=== PATIENT | female | born 1950 | race Caucasian/White ===

== ENCOUNTER 2019-09-25 19:09 | Emergency (ER) | payer OTHER, MEDICARE ==
[2019-09-25 19:28] VITALS: BP 139/97; PULSE 84; TEMP 98.1; BMI 25.7
[2019-09-25] MEDS ORDERED: DIPHTH,PERTUSS(ACELL),TET 0.5 ML DISP.SYRIN IM ONE ×2 (20:25→20:29)
--- NOTE | 2019-09-26 01:08 | PDOC ---
Documentation entered by Lyndsey Viveros SCRIBE, acting as scribe for Nena Woods MD. Nena Woods MD: This documentation has been prepared by the emiribeFelice Ana, SCRIBE, under my direction and personally reviewed by me in its entirety. I confirm that the documentation accurately reflects all work, treatment, procedures, and medical decision making performed by me. History of Present Illness - General Chief Complaint: Laceration Stated Complaint: LEFT 4TH FINGER LACERATION Time Seen by Provider: 09/25/19 19:17 History Source: Patient Exam Limitations: No Limitations - History of Present Illness Initial Comments: 09/25/19 19:22 Patient is a 68 year old female with a significant past medical history of hypothyroidism and depression, who presents to the ED with an injury to her left hand earlier today. Patient stated she was gardening when she "snipped a piece of her finger with garden snippers" and the blood started "gushing". Patient placed a gauze dressing on the wound but reported here when bleeding persisted Patient denies: smoking, alcohol use, fever, chills, headache, nausea, vomiting, SOB, chest pain, abdominal pain, diarrhea, back pain, or any other related symptoms Unknown last tetanus immunization Allergies: Iv Contrast Past History - Medical History Allergies/Adverse Reactions: Allergies Allergy/AdvReac Type Severity Reaction Status Date / Time IV Contrast Allergy Uncoded 09/25/19 19:11 Home Medications: Ambulatory Orders Aspirin [Aspirin EC] 81 mg PO DAILY 09/25/19 Bupropion HCl [Wellbutrin Xl] 300 mg PO DAILY 09/25/19 Cholecalciferol (Vitamin D3) [Vitamin D3] 2,000 unit PO DAILY 09/25/19 Docusate Sodium [Colace] 100 mg PO DAILY 09/25/19 Duloxetine HCl 100 mg PO DAILY 09/25/19 Irbesartan 150 mg PO DAILY 09/25/19 L.acidoph,Paracasei, B.lactis [Probiotic] 1 each PO DAILY 09/25/19 Levothyroxine Sodium [Synthroid] 137 mcg PO DAILY 09/25/19 Magnesium 250 mg PO DAILY 09/25/19 Metoprolol Succinate [Toprol Xl] 25 mg PO DAILY 09/25/19 Rosuvastatin Calcium [Crestor] 20 mg PO DAILY 09/25/19 traZODone HCL [Trazodone HCl] 100 mg PO DAILY 09/25/19 COPD: No HTN: Yes Thyroid Disease: Yes (HYPOTHYROIDISM) - Psycho-Social/Smoking History Smoking Status: Yes Smoking History: Never smoked Have you smoked in the past 12 months: No Number of Cigarettes Smoked Daily: 0 Information on smoking cessation initiated: No - Substance Abuse Hx (Audit-C & DAST Scrn) How often the patient has a drink containing alcohol: Never Score: In Men: 4 or > Positive; In Women: 3 or > Positive: 0 Screen Result (Pos requires Nsg. Audit-10AR): Negative In the last yr the pt used illegal drug/Rx for NonMed reason: No Score: Yes response is considered Positive: 0 Screen Result (Positive result requires Nsg. DAST-10): Negative Review of Systems - Review of Systems Able to Perform ROS?: Yes Comments:: 09/25/19 19:24 GENERAL/CONSTITUTIONAL: No fever or chills. No weakness. HEAD, EYES, EARS, NOSE AND THROAT: No change in vision. No ear pain or discharge. No sore throat. CARDIOVASCULAR: No chest pain, no shortness of breath, no loss of consciousness RESPIRATORY: No cough, wheezing, or hemoptysis. GASTROINTESTINAL: No nausea, vomiting, diarrhea or constipation. GENITOURINARY: No dysuria, frequency, or change in urination. MUSCULOSKELETAL: +Injury to left finger. No neck or back pain. SKIN: No rash NEUROLOGIC: No vertigo, no change in strength/sensation. ENDOCRINE: No increased thirst. No abnormal weight change. HEMATOLOGIC/LYMPHATIC: No anemia, easy bleeding, or history of blood clots. ALLERGIC/IMMUNOLOGIC: No hives or skin allergy. *Physical Exam - Vital Signs Last Vital Signs Temp Pulse Resp BP Pulse Ox 98.1 F 84 18 139/97 98 09/25/19 19:09 09/25/19 19:09 09/25/19 19:09 09/25/19 19:09/25/19 19:09 - Physical Exam 09/25/19 19:24 GENERAL: Awake, alert, and fully oriented, in no acute distress. HEAD: No signs of trauma EYES: PERRLA, EOMI, sclera anicteric, conjunctiva clear ENT: Auricles normal inspection, hearing grossly normal, nares patent, oropharynx clear without exudates. Moist mucosa NECK: Nontender, no stepoffs, Normal ROM, supple, no lymphadenopathy, JVD, or masses LUNGS: Breath sounds equal, clear to auscultation bilaterally. No wheezes, and no crackles HEART: Regular rate and rhythm, normal S1 and S2, no murmurs, rubs or gallops ABDOMEN: Soft, nontender, normoactive bowel sounds. No guarding, no rebound. No masses EXTREMITIES: +1.5cm skin evulsion on left distal phalax dorsal surface left 4th finger oozing without nail bed damage. No clubbing or cyanosis. No cords, erythema. NEUROLOGICAL: Cranial nerves II through XII intact. 5/5 strength and sensation in all extremities, Normal speech, normal gait, normal cerebellar function SKIN: Warm, Dry, normal turgor, no rashes or lesions noted. Procedures - Laceration/Wound Repair Left Wound Length: to 2.5 cm Wound Explored: clean Wound's Depth, Shape: superficial Irrigated w/ Saline: Yes Progress: Left fourth finger cleansed and sterilely draped. Wound irrigated and gently cleansed using sterile gauze and sterile normal saline. 1.5 cm superficial skin avulsion seen in the ulnar aspect of the distal phalanx of the left fourth finger. Nailbed and eponychium are not injured. After cleansing of the area, wound was covered with small piece of Surgicel followed by Xeroform/bacitracin. After direct pressure, sterile dressing of gauze and tube dressing applied. Medical Decision Making - Medical Decision Making As noted above, this 68-year-old woman presents with skin avulsion type injury of the left fourth finger, sustained earlier today when she was gardening. Exam as noted. Skin avulsion injury cleansed and Xeroform/sterile dressing applied as noted above. Boostrix tetanus immunization administered. Wound care instructions discussed with the patient: The patient should keep the wound as dry as possible with original dressing intact for 48 hours. After that time, she should remove the original dressing and trim any dried area of Xeroform. Protective dressing should be kept on the wound, changed daily in the same way, for at least a week. If the area becomes swollen, red, painful, she should return here or follow-up with her doctor Discharge - Discharge Information Problems reviewed: Yes Clinical Impression/Diagnosis: Avulsion of skin of finger Qualifiers: Encounter type: initial encounter Qualified Code(s): S61.209A - Unspecified open wound of unspecified finger without damage to nail, initial encounter Condition: Stable Disposition: HOME - Follow up/Referral - Patient Discharge Instructions Patient Printed Discharge Instructions: DI for Avulsion Laceration (Not Requiring Sutures) Additional Instructions: keep finger elevated, with gentle pressure as needed keep original dressing in place as dry as possible for 48 hours after 48 hours, remove dressing and trim gauze as discussed use protective dressing as needed return to ER if area becomes swollen, red or more painful - Post Discharge Activity
== END 2019-09-25 20:35 | disposition home or self-care (01) ==
LOC: FER 19:09
PROC: 0HQGXZZ Repair Left Hand Skin, External Approach (ICD-10-PCS; principal; 2019-09-25)
PROC: 3E0234Z Introduction of Serum, Toxoid and Vaccine into Muscle, Percutaneous Approach (ICD-10-PCS; 2019-09-25)
DX: S61.215A Laceration without foreign body of left ring finger without damage to nail, initial encounter (principal)
CPT/HCPCS: 90715; 99284-25